=== PATIENT | female | born 1990 | race Caucasian/White ===

== ENCOUNTER 2017-12-01 19:47 | Emergency (ER) | payer MEDICAID, OTHER ==
[2017-12-01 20:59] LABS: APPEARANCE,URINE Clear (CLEAR); BILIRUBIN,URINE Negative (NEGATIVE); COLOR,URINE Yellow (YELLOW); GLUCOSE, URINE (UA) Negative (NEGATIVE); KETONES,URINE Negative (NEGATIVE); LEUKOCYTE ESTERASE ,URINE Trace (NEGATIVE); NITRATE,URINE Negative (NEGATIVE); OCCULT BLOOD,URINE Large (NEGATIVE); PH,URINE 6.5 (5.0-8.0); PROTEIN,URINE Negative (NEGATIVE); UROBILINOGEN,URINE 0.2 mg/dL (0.2-1.0)
[2017-12-01 21:08] LABS: HCG,QUAL RESULT POSITIVE (NEGATIVE)
[2017-12-01 21:20] LABS: BACTERIA,URINE Rare /HPF (None Seen); SQUAMOUS EPITHELIAL CELL,UR Few /LPF (0-2)
[2017-12-01 23:28] LABS: BASOPHILS % (AUTO) 1.9 % (0.0-5.0); EOSINOPHILS % (AUTO) 1.6 % (0.0-8.0); HEMATOCRIT 37.9 % (36-48); LYMPHOCYTES % (AUTO) 20.9 % (21.0-51.0); MEAN CORPUSCULAR HEMOGLOBIN 29.2 pg (27.0-33.0); MEAN CORPUSCULAR HGB CONC 32.6 g/dL (32.0-36.0); MEAN CORPUSCULAR VOLUME 89.5 fL (79-99); MONOCYTES % (AUTO) 5.4 % (3.0-13.0); NEUTROPHILS % (AUTO) 70.2 % (40.0-77.0); PLATELET COUNT (AUTO) 264 K/uL (130-400); RED BLOOD CELL COUNT(AUTO) 4.24 MIL/uL (4.00-5.50); RED CELL DISTRIBUTION WIDTH 14.3 % (11.0-15.5); WHITE BLOOD COUNT (AUTO) 9.4 K/uL (4.8-10.8)
== END 2017-12-02 00:30 | disposition home or self-care (01) ==
LOC: EDH 19:47
DX: O20.9 Hemorrhage in early pregnancy, unspecified (principal); Z3A.00 Weeks of gestation of pregnancy not specified
CPT/HCPCS: 36415; 76817; 81001; 81025; 84702; 85025; 86900; 86901

== ENCOUNTER 2020-07-12 15:29 | Inpatient (IN) | payer BC, MEDICAID ==
[~2020-07-12] VITALS: Ht 177.8 cm; Wt 119.7 kg
[2020-07-12] MEDS ORDERED: LACTATED RINGERS 1000ML 1,000 ML IV PRN (15:46)
[2020-07-12] MEDS ORDERED: NALOXONE HCL 0.4 MG/1 ML ML IV PRN (16:00)
[2020-07-12] MEDS ORDERED: BUTORPHANOL TARTRATE 2 MG/ML IVP PRN (16:00)
[2020-07-12] MEDS ORDERED: OXYTOCIN-LR 20 UNITS/1000 ML 1,000 ML IV SCH (16:00)
[2020-07-12] MEDS ORDERED: EPHEDRINE SULFATE 50 MG/ML AMPULE IVP PRN (16:00)
[2020-07-12] MEDS ORDERED: LACTATED RINGERS 500 ML 500 ML IV PRN (16:00)
[2020-07-12] MEDS ORDERED: ROPIVACAINE 0.2% 100ML VIAL 100 ML EP SCH (16:00)
[2020-07-12 16:44] LABS: HEMATOCRIT 35.1 % (36-48); MEAN CORPUSCULAR HEMOGLOBIN 27.6 pg (27.0-33.0); MEAN CORPUSCULAR HGB CONC 32.2 g/dL (32.0-36.0); MEAN CORPUSCULAR VOLUME 85.8 fL (79-99); RED BLOOD CELL COUNT(AUTO) 4.09 MIL/uL (4.00-5.50); RED CELL DISTRIBUTION WIDTH 14.6 % (11.0-15.5); WHITE BLOOD COUNT (AUTO) 11.7 K/uL (4.8-10.8)
[2020-07-12 16:47] LABS: APPEARANCE,URINE Clear (CLEAR); BILIRUBIN,URINE Negative (NEGATIVE); COLOR,URINE Yellow (YELLOW); GLUCOSE, URINE (UA) Negative (NEGATIVE); KETONES,URINE Negative (NEGATIVE); LEUKOCYTE ESTERASE ,URINE Small (NEGATIVE); NITRATE,URINE Negative (NEGATIVE); OCCULT BLOOD,URINE Negative (NEGATIVE); PH,URINE 5.5 (5.0-8.0); PROTEIN,URINE Negative (NEGATIVE); UROBILINOGEN,URINE 0.2 mg/dL (0.2-1.0)
[2020-07-12 16:59] LABS: BACTERIA,URINE Few /HPF (None Seen); MUCUS,URINE Few LPF (None Seen); RBC,URINE 0-1 /HPF (0-1); SQUAMOUS EPITHELIAL CELL,UR Few /HPF (0-2)
[2020-07-12 17:37] VITALS: BP 139/71
[2020-07-12] MEDS ORDERED: MISOPROSTOL 25 MCG TABLET VG SCH (18:00)
[2020-07-12] MEDS ORDERED: PREN-196 PO (19:46)
[2020-07-12] MEDS ORDERED: ENOX40DI8 SQ (19:46)
[2020-07-13] MEDS ORDERED: OXYTOCIN 10 USP UNITS/ML 20 UNIT in LACTATED RINGERS 1000ML 1,000 ML IV SCH (05:00)
[2020-07-13] MEDS ORDERED: FENTANYL CITRATE PF 50 MCG/1 ML 2ML VIAL ONE (07:52)
[2020-07-13] MEDS ORDERED: LIDOCAINE HCL 1% 20 ML VIAL INJ PRN (09:15)
[2020-07-13] MEDS ORDERED: METHYLERGONOVINE MALEATE 0.2 MG/1 ML ML ONE (10:24)
[2020-07-13] MEDS ORDERED: MISOPROSTOL 200 MCG TABLET ONE (10:24)
[2020-07-13] MEDS ORDERED: IBUPROFEN 600 MG TABLET PO PRN (11:00)
[2020-07-13] MEDS ORDERED: DIPH,PERTUSS(ACELL),TET VAC/PF 0.5 ML VIAL IM PRN (11:00)
[2020-07-13] MEDS ORDERED: ACETAMINOPHEN-CODEINE 300/30MG TAB PO PRN (11:00)
[2020-07-13] MEDS ORDERED: WITCH HAZEL 1 PAD TP PRN (11:00)
[2020-07-13] MEDS ORDERED: LANOLIN 30GM OINTMENT TP PRN (11:00)
[2020-07-13] MEDS ORDERED: MEASLES/MUMPS/RUBELLA VACCINE, LIVE 0.5 ML/VIAL SQ PRN (11:00)
[2020-07-13] MEDS ORDERED: ACETAMINOPHEN 325 MG TAB PO PRN (11:00)
[2020-07-13] MEDS ORDERED: BENZOCAINE/LANOLIN/ALOE VERA 60 ML AEROSOL TP PRN (11:00)
[2020-07-13 11:10] VITALS: BP 122/57
[2020-07-13] MEDS ORDERED: OXYTOCIN-LR 20 UNITS/1000 ML 1,000 ML IV SCH (11:30)
--- NOTE | 2020-07-13 12:20 | NUR ---
jeremías done, recovery QBL - 148ml Addendum: 07/13/20 at 1239 by JASVIR HIRSCH RN Amended: Links added.
[2020-07-13] MEDS ORDERED: SODIUM CHLORIDE 0.9% 10 ML VIAL IVP PRN (13:45)
[2020-07-13] MEDS ORDERED: PROMETHAZINE HCL 25 MG/ML 1ML AMPULE IM PRN (13:45)
[2020-07-13] MEDS ORDERED: MEPERIDINE-PF 75 MG/ML SYG IM PRN (13:45)
[2020-07-13] MEDS ORDERED: DEXTROSE 5 %-0.45 % NACL 1,000 ML IV PRN (13:45)
[2020-07-13] MEDS: IBUPROFEN 600 MG TABLET PO PRN (17:32)
[2020-07-13 19:45] VITALS: BP 133/86
[2020-07-13] MEDS: DOCUSATE SODIUM 100 MG CAP PO SCH (19:51)
[2020-07-13] MEDS ORDERED: CEFAZOLIN 3GM /D5W 100ML 100 ML IV SCH (20:00)
[2020-07-13] MEDS ORDERED: CALDOLOR 800MG+NS 250ML 250 ML IV SCH (21:45)
[2020-07-13 23:30] VITALS: BP 128/84
[2020-07-14] MEDS: IBUPROFEN 600 MG TABLET PO PRN ×2 (02:05→08:26)
[2020-07-14 03:43] VITALS: BP 125/75
[2020-07-14 07:17] LABS: HEPATITIS Bs ANTIGEN SCREEN P Negative (Negative)
[2020-07-14 07:30] VITALS: BP 124/76
[2020-07-14] MEDS: DOCUSATE SODIUM 100 MG CAP PO SCH (08:26)
[2020-07-14 12:05] VITALS: BP 120/84
--- NOTE | 2020-07-14 13:55 | NUR ---
PATIENT LEFT UIT VIA WHEELCHAIR WITH BABY IN ARMS. PERSONAL VEHICLE USED FOR TRANSPORTATION ACCOMPANIED BY . BABY SECURE IN CARSEAT. NO COMPLAINTS OR CONCERNS ADDRESSED FROM PATIENT ON DISCHARGE.
== END 2020-07-14 13:55 | disposition home or self-care (01) | DRG 806 ==
LOC: LDH 15:29 → WSH 07-13 11:05
PROVIDERS: ADMIT Obstetrics & Gynecology; ATTEND Obstetrics & Gynecology
PROC: 10E0XZZ Delivery of Products of Conception, External Approach (ICD-10-PCS; principal; 2020-07-13)
PROC: 0KQM0ZZ Repair Perineum Muscle, Open Approach (ICD-10-PCS; 2020-07-13)
PROC: 3E0234Z Introduction of Serum, Toxoid and Vaccine into Muscle, Percutaneous Approach (ICD-10-PCS; 2020-07-13)
PROC: 3E0134Z Introduction of Serum, Toxoid and Vaccine into Subcutaneous Tissue, Percutaneous Approach (ICD-10-PCS; 2020-07-13)
PROC: 3E0P7VZ Introduction of Hormone into Female Reproductive, Via Natural or Artificial Opening (ICD-10-PCS; 2020-07-13)
PROC: 3E0234Z Introduction of Serum, Toxoid and Vaccine into Muscle, Percutaneous Approach (ICD-10-PCS; 2020-07-13)
DX: O99.12 Other diseases of the blood and blood-forming organs and certain disorders involving the immune mechanism complicating childbirth (principal); D68.61 Antiphospholipid syndrome; Z37.0 Single live birth; O70.1 Second degree perineal laceration during delivery; O62.2 Other uterine inertia; O26.23 Pregnancy care for patient with recurrent pregnancy loss, third trimester; Z3A.37 37 weeks gestation of pregnancy; Z23 Encounter for immunization; Z67.11 Type A blood, Rh negative
CPT/HCPCS: 36415; 81001; 83033; 85027; 86592; 86850; 86900; 86901; 87340; A4314; G0378; J0595; J0690; J2210; J2590; J2791; J2795; J3010; J7120